=== PATIENT | female | born 1930 | race Caucasian/White ===

== ENCOUNTER 2021-08-31 09:10 | Emergency (ER) | payer MEDICARE, OTHER ==
[~2021-08-31] VITALS: Ht 157.5 cm; Wt 61.3 kg
[~2021-08-31 09:10] MED LIST: ALAVERT10 MG OR; BONIVA150 MG OR; CALCIUM500 M3 OR; ECOTRIN325 MG OR; FLAX SEED1000 MG OR; MAREPA1000 MG OR; NORVASC OR; SYNTHROID75 MCG OR; TENORMIN OR; ULTRAM50 M1 OR; VIT A & D OR; ZOCOR20 MG OR
[2021-08-31 11:03] VITALS: BP 188/84
== END 2021-08-31 11:07 | disposition home or self-care (01) ==
LOC: ED 09:10
DX: S90.111A Contusion of right great toe without damage to nail, initial encounter (principal); I10 Essential (primary) hypertension; E78.5 Hyperlipidemia, unspecified; W22.09XA Striking against other stationary object, initial encounter; Y92.009 Unspecified place in unspecified non-institutional (private) residence as the place of occurrence of the external cause

== ENCOUNTER 2022-03-11 09:10 | Observation (INO) | payer MEDICARE, OTHER ==
[~2022-03-11] VITALS: Ht 157.5 cm; Wt 65.0 kg
[2022-03-11] VITALS (83 sets, daily range): BP systolic 87–205; BP diastolic 53–134
--- NOTE | 2022-03-11 09:25 | NUR ---
PT ESCORTED VIA WHEELCHAIR TO ROOM 10 FOR EVAL OF CHEST PRESSURE AND RAPID HEART RATE REFERRED BY DR EM'S OFFICE WHO REPORTS HR 150 IN OFFICE WITH HX OF AFIB AND RECENT MEDICATION CHANGE FROM PROPANOLOL TO METOPROLOL
[2022-03-11 09:43] LABS: HEMOGLOBIN 14.9 g/dl (12.0-16.0); IMMATURE GRANULOCYTES 0.1 % (0.0-5.0); MEAN CELL VOLUME 97.7 fL CALC (80.0-100.0); MEAN CORPUSCULAR HGB 31.6 pG CALC (26.0-32.0); MEAN CORPUSCULAR HGB CONC 32.4 g/dL CAL (32.0-36.0); NEUT# 6.26 thou/uL (2.00-7.15); RED BLOOD COUNT 4.71 mill/uL (4.20-5.60)
[2022-03-11 09:59] LABS: ALBUMIN 4.2 g/dL (3.2-5.0); ALKALINE PHOSPHATASE 78 u/l (38-126); ANION GAP 13 (6-22 (CALC)); BILIRUBIN, TOTAL 0.6 mg/dL (0.0-1.4); BUN 25 mg/dL (8-23); BUN/CREATININE RATIO 25 (12-20 (CALC)); CARBON DIOXIDE 27 mmol/l (22-30); CHLORIDE 103 mmol/l (95-108); GFR FOR AFR.AMER. > 60 ML/MIN (>=60 (CALC)); GFR OTHER RACES 52 ML/MIN (>=60 (CALC)); POTASSIUM 4.6 mmol/l (3.5-5.1); SODIUM 138 mmol/l (137-146); TOTAL PROTEIN 7.2 g/dL (6.3-8.2)
[2022-03-11 10:27] LABS: SGOT/AST 69 u/l (9-36)
[2022-03-11] MEDS ORDERED: SYNTHROID25 MCG PO ×2 (10:31)
[2022-03-11] MEDS ORDERED: XARELTO10 MG PO (10:32)
[2022-03-11] MEDS ORDERED: LIPITOR20 MG PO (10:32)
[2022-03-11] MEDS ORDERED: METOPROL TAR25 MG PO (10:32)
[2022-03-11] MEDS ORDERED: VENTOLIN HFA108 MCG IN (10:33)
--- NOTE | 2022-03-11 11:08 | NUR ---
Patient resting quietly at this time, reports marked relief of symptoms, awake and alert, no c/o pain or discomfort, no s/s of distress noted, respirations even and unlabored, daughter at bedside.
--- NOTE | 2022-03-11 11:31 | NUR ---
Po fluids and lunch tray delivered to patient and guest
--- NOTE | 2022-03-11 11:31 | NUR ---
Jaron Patel per order
--- NOTE | 2022-03-11 12:29 | NUR ---
Patient to restroom by wheelchair, able to toilet independently, no c/o pain or discomfort, no s/s of distress noted, consumed 100% of lunch meal provided.
[2022-03-11] MEDS ORDERED: TYLENOL PM PO (14:41)
[2022-03-11] MEDS ORDERED: TUMS500 MG PO (14:44)
[2022-03-11 14:52] LABS: TSH, 3RD GENERATION 3.04 uIU/mL (0.47 - 4.68)
--- NOTE | 2022-03-11 20:00 | NUR ---
PT ALERT AND ORIENTED. DOES NOT LOOK TO BE IN ANY DISTRESS. FOLLOWING COMMANDS. DENIES PAIN. PT BLOOD PRESSURE RANGING FROM 160-180 AT TIMES. WILL CONTINUE TO MONITOR CLOSELY. PT DENIES TAKING ANYTHING OTHER THEN HER METOPROLOL TWICE DAILY. DOES NOT TAKE ANYTHING BLOOD PRESSURE CONTROL THAT SHE CAN REMEMBER. PT HAS STOOD UP TO USE THE COMMODE MULTIPLE TIME. WILL REASSESS BLOOD PRESSURE TRENDS WHEN SHE IS A REST. CALL LIGHT AND PERSONAL POSSESSIONS WITHIN HER REACH. WILL CONTINUE TO MONITOR.
--- NOTE | 2022-03-11 21:15 | NUR ---
CONTACTED REGARDINGS PTS ELEVATED BLOOD PRESSURE. ORDER RECEIVED.
[2022-03-11 23:52] LABS: URINE BILIRUBIN - DIPSTICK NEGATIVE (NEGATIVE); URINE BLOOD DIPSTICK TRACE-INTACT (NEGATIVE); URINE COLOR YELLOW; URINE GLUCOSE - DIPSTICK NEGATIVE (NEGATIVE); URINE KETONE NEGATIVE (NEGATIVE); URINE LEUK ESTERASE NEGATIVE (NEGATIVE); URINE PROTEIN - DIPSTICK NEGATIVE (NEG-TRACE); URINE SPECIFIC GRAVITY >=1.030; URINE UROBILINOGEN - DIPSTICK 0.2 E.U./dL (0.2)
[2022-03-11 23:53] LABS: URINE NITRITE - DIPSTICK NEGATIVE (Negative)
[2022-03-12] VITALS (26 sets, daily range): BP systolic 143–192; BP diastolic 74–106
--- NOTE | 2022-03-12 | NUR ---
PT REASSESSMENT - PTS BLOOD PRESSURE IN THE 160'S AT THIS TIME. WILL CONTINUE TO MONITOR. CALL LIGHT WITHIN REACH.
--- NOTE | 2022-03-12 03:30 | NUR ---
BP BACK UP, LITTLE TO NO IMPROVEMENT FROM PO INTERVENTION. CONTACTED AND RECEIVED A ONE TIME ORDER TO GIVE HYDRALAZINE 10MG IV PUSH. WILL CONTINUE TO MONITOR.
--- NOTE | 2022-03-12 05:15 | NUR ---
PT REPORTING INCREASED SOB. HAS BEEN QUITE RESTLESS. UNABLE TO SLEEP. VITAL SIGNS WITHIN NORMAL LIMITS. PT ON 2L NC. CONTACTED AND ORDER RECEIVED TO RESTART ALBUTERAL INHALER PT WAS ON AT HOME, PLUS NEBULIZERS Q4H PRN.
[2022-03-12 06:09] LABS: ANION GAP 14 (6-22 (CALC)); BUN 19 mg/dL (8-23); BUN/CREATININE RATIO 23 (12-20 (CALC)); CALCULATED LDLCHOLESTEROL 52 mg/dL (62-129 (CALC)); CARBON DIOXIDE 24 mmol/l (22-30); CHLORIDE 107 mmol/l (95-108); CREATININE 0.8 mg/dL (0.5-1.0); GFR FOR AFR.AMER. > 60 ML/MIN (>=60 (CALC)); GFR OTHER RACES > 60 ML/MIN (>=60 (CALC)); HDL CHOLESTEROL 38 mg/dL (>=40); POTASSIUM 4.7 mmol/l (3.5-5.1); SODIUM 140 mmol/l (137-146); TOTAL CHOLESTEROL 114 mg/dl (0-199); TOTAL TRIGLYCERIDES 119 mg/dl (30-149); VLDL CHOLESTROL 24 mg/dl (0-48 (CALC))
[2022-03-12] MEDS ORDERED: AMLODIPINE BESYL5 MG PO (09:43)
--- NOTE | 2022-03-12 09:54 | NUR ---
AM ASSESSMENT DONE, PT SAT UP FOR BREAKFAST AND ATE WELL, DAUGHTER NOW AT BEDSIDE, WAS PRESENT WHEN DR JEONG WAS IN TO SEE PT, PT AND DAUGHTER ASKED SEVERAL QUESTIONS WHICH WERE ANSWERED BUT THEY WILL NEED FURTHER REINFORCEMENT OF TEACHING, PT ON RA WITH NO SOB, HR AND BP CONTROLLED
== END 2022-03-12 11:10 | disposition home or self-care (01) ==
LOC: ED 09:10 → ED-I 10:30 → ED 11:17 → ICU 11:18
PROVIDERS: Family Medicine; ADMIT Internal Medicine; ATTEND Internal Medicine
DX: I48.91 Unspecified atrial fibrillation (principal); I10 Essential (primary) hypertension; I25.10 Atherosclerotic heart disease of native coronary artery without angina pectoris; E78.5 Hyperlipidemia, unspecified; E05.90 Thyrotoxicosis, unspecified without thyrotoxic crisis or storm; Z79.01 Long term (current) use of anticoagulants; Z20.822 Contact with and (suspected) exposure to COVID-19
CPT/HCPCS: J0282